=== PATIENT | female | born 2005 | race Hispanic/Latino ===

== ENCOUNTER → 2024-01-14 | Outpatient (CLI) | payer OTHER, SELFPAY ==
[2024-01-14 10:34] LABS: Mucous, Urine 0 SEEN /hpf (<or=2+)
[2024-01-14 10:39] LABS: Color, Urine Yellow (Yellow); Glucose, Dipstick Normal (Normal); Ketone-Dipstick Negative (Negative); Leukocyte Esterase-Dipstick 500 /ul (Negative); Nitrite-Dipstick Positive (Negative); Occult Blood-Urine 250 /ul (Negative); Protein-Dipstick 100 mg/dl (Negative); Urine Bilirubin Dipstick Negative (Negative); Urine Clarity Cloudy (Clear); Urine Urobilinogen Normal (Normal)
[2024-01-14 11:00] LABS: Squamous Epithelial Cells - UA 0-5 SEEN /hpf (5-10)
[2024-01-14 11:01] LABS: Bacteria 2+ /hpf (None Seen); Red Blood Cells-Urine > 100 SEEN /hpf (0-5); White Blood Cells >100 SEEN /hpf (0-5)
== END | disposition home or self-care (01) ==
LOC: LABSPEC 09:50
PROVIDERS: PCP Family Medicine; Referring Provider Physician Assistant; Visit Provider Physician Assistant
DX: R30.0 Dysuria (principal)
CPT/HCPCS: 81001; 87077; 87086; 87088; 87186

== ENCOUNTER 2024-02-11 02:05 | Emergency (ER) | payer OTHER, SELFPAY ==
[2024-02-11 02:06] VITALS: BP 135/91; PULSE 87; RESP 16; TEMP 36.4; O2SAT 98; BMI 33.7
--- NOTE | 2024-02-11 02:56 | EDS_ITS ---
HPI History of Present Illness Chief Complaint: Eye Problem Detail of Chief Complaint: Bilateral eyes watering. Nasal congestion and clear drainage. Informant: patient Onset/Context/Timing Location: Bilateral Eyes Onset: Days Context: Gradual Onset Timing: Continuous Current Severity: Mild Maximum Severity: Mild Associated Symptoms Associated Symptoms - Eyes: Itching History of injury: No Visual correction: None Narrative Narrative: 18-year-old female no seen past medical history. She does not wear glasses or contacts. Been complaining of bilateral eyes watering. No pus. No discharge. No trauma. Also nasal congestion and clear drainage. Says her seasonal allergies have been worse in the last couple weeks. Someone told her this might be pinkeye. She was started herself on some eyedrops. She is seeing no improvement of her symptoms. Prior similar symptoms: Yes Recent Illness/Hospitalization: No PFSH PFSH Medical History no medical history no medical history Home Medications ?Medication ?Instructions ?Recorded ?Last Taken ?Type desogestrel 0.15 mg-ethinyl 1 tab PO DAILY 02/11/24 Unknown History estradiol 0.03 mg tablet (Enskyce) montelukast 10 mg tablet 10 mg PO DAILY 02/11/24 Unknown History polymyxin B sulfate 10,000 1 drp ophthalmic (eye) 4X/DAY 02/11/24 Unknown History unit-trimethoprim 1 mg/mL eye drops prednisone 20 mg tablet 40 mg (2 x 20 mg) PO DAILY 7 days 02/11/24 Unknown Rx #14 tabs Allergy/AdvReac Type Severity Reaction Status Date / Time No Known Allergies Allergy Verified 02/11/24 02:06 no surgical history Social History Smoking Status: Never smoker ROS ROS ED ROS Narrative Seasonal allergies. Bilateral eyes watering and itching. Nasal congestion. Review of Systems ROS Unobtainable: Denies due to encephalopathy Constitutional Constitutional ED: Denies fever(s) Eyes Eyes: Reports tearing ENT ENT ED: Reports nasal congestion and nasal discharge Cardiovascular Cardiovascular: Reports none Respiratory/Chest Respiratory/Chest: Reports none Gastrointestinal Gastrointestinal: Reports none Genitourinary Genitourinary ED: Reports none Musculoskeletal Musculoskeletal: Reports none Integumentary Reports none Neurologic Neurologic: Reports none Psychiatric Psychiatric: Reports none Endocrine Endocrinology: Reports none Hematologic/Lymphatic Hematologic/Lymphatic: Reports none Allergic/Immunologic Allergic/Immunologic ED: Reports none EXAM Physical Exam Narrative Exam Narrative: Well-appearing 18-year-old female. Vital signs stable afebrile. H EENT exam posterior pharynx normal. No erythema or exudate. No peritonsillar abscess. No trouble swallowing or breathing. TMs normal. Both eyes are watering. No discharge. No swelling. Mildly injected. No orbital or periorbital cellulitis. No preauricular lymphadenopathy. Lungs clear. Heart regular rhythm no murmur. Abdomen soft. Moving all 4 extremities. Awake and alert. Exam benign. Consistent with seasonal allergies with conjunctivitis and nasal congestion. Const Vital Signs: 02/11/24 02:06 02/11/24 02:09 Temperature 97.5 F L Temperature Source Temporal Pulse Rate 87 Respiratory Rate 16 Respiratory Pattern Normal Blood Pressure 135/91 H Blood Pressure Mean 105 Pulse Ox 98 Oxygen Delivery Method Room Air Positive well nourished, well developed, alert, oriented x3, no apparent distress, average body habitus, no limitations and healthy appearing; Negative for obese, cachectic, contractures or unkempt General Appearance ED: active, cooperative, comfortable, well kempt and well developed; Negative for unkempt, cachectic or contractures Nutritional Appearance: Negative for cachectic or obese HEENT Reports normocephalic and head/scalp atraumatic Nose: external nose normal Eyes PERRL, EOMs intact bilaterally, no scleral icterus and no papilledema; Negative for conjunctivae normal Eyes Narrative: Bilateral eyes watering. Clear. Mildly injected. No eyelid swelling. Extraocular motions are intact. Eyelid: eyelids normal Conjunctiva: conjunctiva abnormal Pupil: PERRL and accommodation reflex normal Neck full ROM, no lymphadenopathy, supple, no meningeal signs and no JVD Lymph Lymphatic: no lymphadenopathy noted and no lymphedema noted Chest Wall inspection of chest normal and palpation of chest normal Resp normal respiratory effort, normal air movement, no retractions, no use of accessory muscles and clear to auscultation bilaterally Effort and Inspection: able to speak in complete sentences Auscultation: clear to auscultation bilaterally Cardio regular rate, regular rhythm, S1 normal heart sound, S2 normal heart sound, no murmurs, no rub, no gallops, no clicks and no JVD GI normal to inspection, nondistended, normoactive bowel sounds, soft to palpation, non-tender and non-distended Back/Spine no CVA tenderness, normal ROM, normal to inspection, thoracic and lumbar spine normal to inspection and no thoracic nor lumbar tenderness Extremity normal to inspection, full ROM, no joint enlargement, no clubbing, cyanosis or edema, no calf tenderness and no pedal edema Neuro oriented x3, CN's II-XII intact bilaterally, moves all extremities and no focal motor deficits Psych mental status grossly normal, thought process normal, cooperative, affect normal, speech normal and activity/motor behavior normal Appearance: Negative for unkempt Skin no rashes or lesions noted, no wounds, skin turgor normal, no jaundice and no petechiae General Skin Exam: no breakdown Lesions: no lesions Rashes: no rashes Trauma: no lacerations or abrasions MDM MDM MDM Narrative Medical decision making narrative: 18-year-old female with seasonal allergies, nasal congestion and allergic conju nctivitis. We discussed treatment options such as Naphcon-A versus oral steroid she preferred oral steroids. She was given a dose here and be placed on 7 days of prednisone 40 mg a day. Discharge Plan Triage Chief Complaint: Eye Problem Other Complaint: Cold Sx ED Provider: Mihir Cobb Dx/Rx/DC Orders Clinical Impression: Acute seasonal allergic rhinitis, Acute allergic conjunctivitis Instructions: ED Conjunctivitis, Allergic, ED Allergic Rhinitis Prescriptions: New prednisone 20 mg tablet 40 mg PO DAILY 7 Days Qty: 14 0RF No Action desogestrel-ethinyl estradiol [Enskyce] 0.15-0.03 mg tablet 1 tab PO DAILY polymyxin B sulf-trimethoprim 10,000 unit- 1 mg/mL drops 1 drp ophthalmic (eye) 4X/DAY montelukast 10 mg tablet 10 mg PO DAILY Primary Care Provider: Beau Reese Referrals: Beau Reese MD [Primary Care Provider] - As Needed Activity Restrictions/Additional Instructions: This all appears to be secondary to seasonal allergies. Your runny and congested nose and your conjunctivitis of your eyes. I do not think it is pinkeye. You will be placed on prednisone 40 mg a day for the next 7 days. Today's dose that were given here will be for Saturday do not take it again until Saturday either at morning or lunch. That should progressively improve. Print Language: Mauritanian Disposition Disposition: Home, Self Care
[2024-02-11] MEDS: predniSONE 20 MG Tablet 40 MG PO (03:08)
[2024-02-11 03:09] VITALS: BP 121/72; PULSE 83; RESP 18; TEMP 36.1; O2SAT 98
== END 2024-02-11 03:11 | disposition home or self-care (01) ==
PROVIDERS: Emergency Provider Emergency Medicine; PCP Family Medicine; Visit Provider Emergency Medicine
DX: J30.9 Allergic rhinitis, unspecified (principal); H10.10 Acute atopic conjunctivitis, unspecified eye
CPT/HCPCS: 99283

== ENCOUNTER → 2025-02-22 | Outpatient (CLI) | payer OTHER, SELFPAY | END | disposition home or self-care (01) | LOC: LABSPEC 02-24 10:59 | PROVIDERS: PCP Family Medicine; Visit Provider Physician Assistant | DX: R69 Illness, unspecified (principal) | CPT/HCPCS: 87077; 87086; 87088; 87186 ==

== ENCOUNTER 2025-06-16 15:22 | Emergency (ER) | payer OTHER, SELFPAY ==
[2025-06-16 15:23] VITALS: BP 128/87; PULSE 79; RESP 16; TEMP 35.6; O2SAT 97; BMI 34.3
--- NOTE | 2025-06-16 16:00 | EX.ED.GENINJ ---
HPI History of Present Illness Chief Complaint: Head Injury Informant: patient Narrative Narrative: Patient is a 19-year-old female with a history of migraines presenting with persistent headache, nausea, and lightheadedness following a head injury two days ago. - During a volleyball practice, patient was struck on the crown of her head by a spiked ball. - Immediately after the incident, she experienced a headache, which she considered normal. - The next day, she felt a little weird but attributed it to a headache; took 2 tablets of 500 mg Tylenol. - Symptoms persisted throughout the day, including a lingering headache and a sense of feeling weird. - By the afternoon, she experienced increased nausea and a persistent headache; took 2 more tablets of Tylenol without relief. - Symptoms led her to call off work and take a 5-6 hour nap. - Today, she attended classes but continued to feel lightheaded, nauseous, and had a persistent headache. - Friends performed informal concussion tests, noting difficulty with balance (standing on one foot with eyes closed). - Describes the headache as an intense lingering migraine. - Reports blurred vision today, which she attributes to being in classes all day; slight photophobia. - Denies emesis, focal weakness, or numbness in extremities. - Denies neck or back pain. PFSH [facility] Medical History no medical history Home Medications ?Medication ?Instructions ?Recorded ?Last Taken ?Type desogestrel 0.15 mg-ethinyl 1 tab PO DAILY 02/11/24 Unknown History estradiol 0.03 mg tablet (Enskyce) montelukast 10 mg tablet 10 mg PO DAILY 02/11/24 Unknown History montelukast 10 mg tablet 10 mg PO QDAY #30 tabs 03/13/25 Unknown Rx acetaminophen 500 mg tablet 1,000 mg PO Q6H PRN pain 06/16/25 Unknown History (Acetaminophen Extra Strength) metoclopramide HCl 10 mg tablet 10 mg PO Q6H PRN nausea #15 tabs 06/16/25 Unknown Rx Allergy/AdvReac Type Severity Reaction Status Date / Time No Known Allergies Allergy Verified 06/16/25 15:23 Social History Smoking Status: Never smoker ROS ROS ED ROS Narrative Head: (+) headache Eyes: (+) blurred vision on occasion, (+) photophobia Neck: (-) neck pain Gastrointestinal: (+) nausea, (-) vomiting Musculoskeletal: (-) back pain Neurological: (+) lightheadedness, (-) dizziness, (-) limb weakness, (-) numbness EXAM Physical Exam Narrative Exam Narrative: General: No acute distress. HEENT: No tenderness to palpation of face. Const Vital Signs: 06/16/25 15:23 06/16/25 15:58 Temperature 96.1 F L Temperature Source Temporal Pulse Rate 79 Respiratory Rate 16 Respiratory Effort Normal Respiratory Depth Normal Respiratory Pattern Normal Blood Pressure 128/87 H Blood Pressure Mean 100 Pulse Ox 97 Oxygen Delivery Method Room Air HEENT HEENT Narrative: No Vines sign, no raccoon eyes, no CSF otorhinorrhea, no hemotympanum. atraumatic; Negative for trauma or tenderness Neck full ROM General: Negative for tenderness Back/Spine normal to inspection and no thoracic nor lumbar tenderness Thoracic Spine / Upper Back: Negative for thoracic spinal tenderness Neuro oriented x3, CN's II-XII intact bilaterally, moves all extremities, no focal motor deficits, no sensory deficits noted and gait normal Neuro Narrative: [id number] testing normal bilaterally, [id number] testing normal bilaterally. Psych mental status grossly normal and thought process normal Skin no rashes or lesions noted, no wounds and skin turgor normal MDM MDM MDM Narrative Medical decision making narrative: Assessment: The patient is a 19-year-old female presenting for persistent headache, nausea, lightheadedness, and mild photophobia after being struck on the crown of the head by a volleyball spike 2 nights ago. Neurologic exam (finger?nose, heel?lamb) is normal without focal deficits. Symptoms and off-balance sensation are most consistent with a minor concussion versus post-traumatic migraine. She passes the [place] Head CT Rule but does not meet the [place] criteria; CT head was offered to exclude intracranial hemorrhage, however the patient declined after discussion of risks. Given benign exam and low-risk mechanism, minor concussion is the most likely diagnosis. Plan: - Administered oral antiemetic with migraine benefit in ED. - Administered IM Toradol for analgesia. - Provided concussion education: no athletic play until symptom-free, gradual return as tolerated. - Advised PCP follow-up and neuropsychologic testing if symptoms persist >= week. - Discharged home in stable condition with return precautions discussed. Discharge Plan Triage Chief Complaint: Head Injury ED Provider: Henrry Yousif Dx/Rx/DC Orders Clinical Impression: Closed head injury with concussion, Migraine headache Instructions: ED Concussion Prescriptions: New metoclopramide HCl 10 mg tablet 10 mg PO Q6H PRN (Reason: nausea) Qty: 15 0RF No Action montelukast 10 mg tablet 10 mg PO QDAY Qty: 30 0RF acetaminophen [Acetaminophen Extra Strength] 500 mg tablet 1,000 mg PO Q6H PRN (Reason: pain) desogestrel-ethinyl estradiol [Enskyce] 0.15-0.03 mg tablet 1 tab PO DAILY montelukast 10 mg tablet 10 mg PO DAILY Primary Care Provider: Beau Reese Referrals: Beau Reese MD [Primary Care Provider, [facility]] - 1 Week if not improving Referral Note: Or [facility] Activity Restrictions/Additional Instructions: - Take the prescribed anti-nausea/migraine pill as directed to help relieve your headache and nausea. - Avoid all sports and high-impact activities until your headache, nausea, lightheadedness, and any vision sensitivity have fully resolved. - If your symptoms (headache, nausea, lightheadedness, blurred vision, or light sensitivity) persist beyond one week, schedule an appointment with your primary care provider for further evaluation, which may include neuropsychologic testing. - No CT scan was performed per your preference; you understand the low risk of serious bleeding given your exam and mechanism of injury. Print Language: New Zealander Disposition Disposition: Home, Self Care
[2025-06-16 16:26] VITALS: BP 128/87; PULSE 79; RESP 16; TEMP 35.6; O2SAT 97
== END 2025-06-16 16:27 | disposition home or self-care (01) ==
LOC: ED 16:25
PROVIDERS: Emergency Provider Emergency Medicine; Visit Provider Emergency Medicine
DX: S06.0X0A Concussion without loss of consciousness, initial encounter (principal); G43.909 Migraine, unspecified, not intractable, without status migrainosus; X58.XXXA Exposure to other specified factors, initial encounter
CPT/HCPCS: 99283

== ENCOUNTER → 2025-08-19 | Outpatient (CLI) | payer OTHER, SELFPAY | END | disposition home or self-care (01) | LOC: LABSPEC 16:55 | PROVIDERS: Visit Provider Physician Assistant Surgical | DX: R82.90 Unspecified abnormal findings in urine (principal) | CPT/HCPCS: 87077; 87086; 87088; 87186 ==